=== PATIENT | female | born 1970 | race Caucasian/White ===

== ENCOUNTER 2019-05-26 14:43 | Inpatient (IN) | payer MEDICAID ==
[~2019-05-26] VITALS: Ht 167.6 cm; Wt 58.2 kg
[~2019-05-26 14:43] MED LIST: QUET200T4
[2019-05-26] MEDS ORDERED: PLEASE ENTER HEIGHT AND WEIGHT MC SCH (16:00)
[2019-05-26] MEDS ORDERED: BISACODYL 10 MG SUPP PR PRN (16:30)
[2019-05-26] MEDS ORDERED: ONDANSETRON ODT 4 MG PO PRN (16:30)
[2019-05-26] MEDS ORDERED: POLYETHYLENE GLYCOL 17 GM PACKET PO PRN (16:30)
[2019-05-26 16:35] VITALS: BP 106/70
[2019-05-26] MEDS: NICOTINE 21 MG/24 HR PATCH.TD24 TD SCH (17:54)
[2019-05-26 20:00] VITALS: BP_SYST 113; BP_SYST 122; BP_DIAS 62; BP_DIAS 88
[2019-05-27 07:34] VITALS: BP 135/89
[2019-05-27] MEDS: NICOTINE 21 MG/24 HR PATCH.TD24 TD SCH (08:40)
[2019-05-27] MEDS: ARIPIPRAZOLE 15 MG TABLET PO SCH (13:05)
[2019-05-27 16:55] LABS: MICROSCOPIC AUTO
[2019-05-27 16:56] LABS: CULTURE INDICATED? YES
[2019-05-27 19:25] VITALS: BP 125/78
[2019-05-27] MEDS: QUETIAPINE 100MG TABLET PO SCH (20:28)
[2019-05-28 07:57] VITALS: BP 104/68
[2019-05-28] MEDS: ARIPIPRAZOLE 15 MG TABLET PO SCH (08:43)
[2019-05-28] MEDS: NICOTINE 21 MG/24 HR PATCH.TD24 TD SCH (08:43)
[2019-05-28] MEDS: ACETAMINOPHEN 325 MG TABLET PO PRN ×2 (13:55→20:39)
[2019-05-28] MEDS ORDERED: CEPHALEXIN 500 MG CAPSULE PO SCH (16:00)
[2019-05-28] MEDS: GABAPENTIN 300 MG CAPSULE PO SCH ×2 (16:19→20:39)
[2019-05-28 19:07] VITALS: BP 110/73
[2019-05-28] MEDS: QUETIAPINE 100MG TABLET PO SCH (20:39)
[2019-05-28] MEDS: CEPHALEXIN 500 MG CAPSULE PO SCH (20:39)
[2019-05-29] MEDS: CEPHALEXIN 500 MG CAPSULE PO SCH ×2 (06:37→11:48)
[2019-05-29 07:05] VITALS: BP 118/77
[2019-05-29] MEDS: NICOTINE 21 MG/24 HR PATCH.TD24 TD SCH (09:22)
[2019-05-29] MEDS: GABAPENTIN 300 MG CAPSULE PO SCH ×3 (09:22→20:21)
[2019-05-29] MEDS: ARIPIPRAZOLE 15 MG TABLET PO SCH (09:22)
[2019-05-29 19:30] VITALS: BP 96/61
[2019-05-29] MEDS: AMOXICILLIN/CLAV 875-125MG TABLET PO SCH (20:21)
[2019-05-29] MEDS: QUETIAPINE 100MG TABLET PO SCH (20:21)
[2019-05-30 07:11] VITALS: BP 123/75
[2019-05-30] MEDS: AMOXICILLIN/CLAV 875-125MG TABLET PO SCH ×2 (08:27→20:24)
[2019-05-30] MEDS: NICOTINE 21 MG/24 HR PATCH.TD24 TD SCH (08:27)
[2019-05-30] MEDS: ARIPIPRAZOLE 15 MG TABLET PO SCH (08:27)
[2019-05-30] MEDS: GABAPENTIN 300 MG CAPSULE PO SCH ×3 (08:27→20:24)
[2019-05-30] MEDS: ACETAMINOPHEN 325 MG TABLET PO PRN (08:27)
[2019-05-30] MEDS: DOCUSATE 100 MG CAPSULE PO PRN ×2 (08:27→20:24)
[2019-05-30 19:52] VITALS: BP 96/63
[2019-05-30] MEDS: QUETIAPINE 100MG TABLET PO SCH (20:24)
[2019-05-31 07:06] VITALS: BP 116/73
[2019-05-31] MEDS ORDERED: HALOPERIDOL 5 MG TABLET PO ONE (08:30)
[2019-05-31] MEDS: NICOTINE 21 MG/24 HR PATCH.TD24 TD SCH (08:38)
[2019-05-31] MEDS: ARIPIPRAZOLE 15 MG TABLET PO SCH (08:38)
[2019-05-31] MEDS: AMOXICILLIN/CLAV 875-125MG TABLET PO SCH ×2 (08:38→20:33)
[2019-05-31] MEDS: GABAPENTIN 300 MG CAPSULE PO SCH ×3 (08:38→20:33)
[2019-05-31 19:33] VITALS: BP 97/60
[2019-05-31] MEDS: QUETIAPINE 100MG TABLET PO SCH (20:33)
[2019-06-01 07:37] VITALS: BP 94/58
[2019-06-01] MEDS: AMOXICILLIN/CLAV 875-125MG TABLET PO SCH ×2 (08:52→20:08)
[2019-06-01] MEDS: ARIPIPRAZOLE 15 MG TABLET PO SCH (08:52)
[2019-06-01] MEDS: GABAPENTIN 300 MG CAPSULE PO SCH ×3 (08:53→20:08)
[2019-06-01] MEDS: NICOTINE 21 MG/24 HR PATCH.TD24 TD SCH (08:54)
[2019-06-01 10:45] VITALS: BP 96/60
[2019-06-01 18:15] VITALS: BP 109/66
[2019-06-01 19:41] VITALS: BP 110/75
[2019-06-01] MEDS: QUETIAPINE 100MG TABLET PO SCH (20:08)
[2019-06-02 07:38] VITALS: BP 114/73
[2019-06-02] MEDS: GABAPENTIN 300 MG CAPSULE PO SCH ×3 (08:21→20:33)
[2019-06-02] MEDS: AMOXICILLIN/CLAV 875-125MG TABLET PO SCH ×2 (08:22→20:32)
[2019-06-02] MEDS: ARIPIPRAZOLE 15 MG TABLET PO SCH (08:22)
[2019-06-02] MEDS: NICOTINE 21 MG/24 HR PATCH.TD24 TD SCH (08:23)
[2019-06-02] MEDS ORDERED: ARIP15TA3 PO (13:24)
[2019-06-02] MEDS ORDERED: QUET100T PO (13:24)
[2019-06-02] MEDS ORDERED: NICO-487 TD (13:24)
[2019-06-02] MEDS ORDERED: QUETIAPINE 100MG TABLET PO ONE (14:00)
[2019-06-02] MEDS: DOCUSATE 100 MG CAPSULE PO PRN (16:09)
[2019-06-02 19:36] VITALS: BP 95/55
[2019-06-02 20:30] VITALS: BP 116/66
[2019-06-02] MEDS: ACETAMINOPHEN 325 MG TABLET PO PRN (20:33)
[2019-06-02] MEDS: QUETIAPINE 100MG TABLET PO SCH (20:33)
[2019-06-03 07:25] VITALS: BP 107/51
[2019-06-03] MEDS: AMOXICILLIN/CLAV 875-125MG TABLET PO SCH (08:53)
[2019-06-03] MEDS: GABAPENTIN 300 MG CAPSULE PO SCH (08:53)
[2019-06-03] MEDS: ARIPIPRAZOLE 15 MG TABLET PO SCH (08:53)
[2019-06-03] MEDS: NICOTINE 21 MG/24 HR PATCH.TD24 TD SCH (08:56)
[2019-06-03] MEDS: ACETAMINOPHEN 325 MG TABLET PO PRN (08:59)
== END 2019-06-03 12:44 | disposition home or self-care (01) | DRG 750 ==
LOC: 3E 14:46
PROVIDERS: ADMIT Psychiatry & Neurology Psychosomatic Medicine; ATTEND Psychiatry & Neurology Psychosomatic Medicine
DX: F20.9 Schizophrenia, unspecified (principal); Z91.19 Patient's noncompliance with other medical treatment and regimen; F12.10 Cannabis abuse, uncomplicated; F15.10 Other stimulant abuse, uncomplicated; F17.210 Nicotine dependence, cigarettes, uncomplicated; G47.00 Insomnia, unspecified; N95.1 Menopausal and female climacteric states; Z60.9 Problem related to social environment, unspecified; Z73.3 Stress, not elsewhere classified; Z79.899 Other long term (current) drug therapy
CPT/HCPCS: 81001; 87077; 87086; 87186; 87491; 87591; 93005

== ENCOUNTER 2019-06-09 20:55 | Emergency (ER) | payer MEDICAID ==
[~2019-06-09] VITALS: Ht 167.6 cm; Wt 57.6 kg
[~2019-06-09 20:55] MED LIST changes: +ARIP15TA3 PO; +NICO-487 TD; +QUET100T PO
[2019-06-09 20:59] VITALS: BP 131/79
== END 2019-06-09 22:12 | disposition home or self-care (01) ==
LOC: ED 21:45
DX: F31.9 Bipolar disorder, unspecified (principal); Z76.0 Encounter for issue of repeat prescription; F17.200 Nicotine dependence, unspecified, uncomplicated; Z59.0 Homelessness
CPT/HCPCS: 99283

== ENCOUNTER 2019-10-14 13:14 | Emergency (ER) | payer MEDICAID ==
[~2019-10-14] VITALS: Ht 167.6 cm; Wt 59.0 kg
[2019-10-14 13:15] VITALS: BP 109/61
--- NOTE | 2019-10-14 13:21 | NUR ---
PT AMBULATED TO THE ROOM W/ A STEADY GAIT.
--- NOTE | 2019-10-14 13:24 | NUR ---
PT REPORTS SHE NEEDS A REFILL OF ABILIFY AND SEROQUEL.
--- NOTE | 2019-10-14 13:44 | NUR ---
Ajay conn in [facility] - 10/14/19 at 1345 by CYNTHIA BREAK RN: PT SITTING UPRIGHT ON CHRISNEY AWAKE & CALM, NAD, RESPONDS APPROP TO STAFF, NO NEEDS AT THIS TIME, CALL LIGHT WITHIN REACH.
--- NOTE | 2019-10-14 13:46 | NUR ---
(CHARTED UNDER WRONG USER) BREAK RN: PT SITTING UPRIGHT ON MONICARJUSTINA AWAKE & CALM, MO, RESPONDS APPROP TO STAFF, NO NEEDS AT THIS TIME, CALL LIGHT WITHIN REACH. Addendum: 10/14/19 at 1347 by JAMIA (PREVIOUS NOTE CHARTED UNDER WRONG USER) BREAK RN: PT SITTING UPRIGHT ON MONICARJUSTINA AWAKE & CALM, MO, RESPONDS APPROP TO STAFF, NO NEEDS AT THIS TIME, CALL LIGHT WITHIN REACH.
--- NOTE | 2019-10-14 14:10 | NUR ---
Patient given discharge instructions and Rx, they have confirmed that they understand the instructions. Patient ambulatory with steady gait.
== END 2019-10-14 14:11 | disposition home or self-care (01) ==
LOC: ED 13:29
DX: F31.89 Other bipolar disorder (principal); Z76.0 Encounter for issue of repeat prescription
CPT/HCPCS: 99281